=== PATIENT | male | born 1990 | race Two or more races ===

== ENCOUNTER 2024-06-02 14:35 | Emergency (ER) | payer MEDICAID, SELFPAY ==
[2024-06-02 14:38] VITALS: BP 121/79; PULSE 64; RESP 17; TEMP 36.3; O2SAT 98; BMI 27.3
[2024-06-02 14:46] VITALS: PULSE 75; RESP 18; O2SAT 99
--- NOTE | 2024-06-02 14:46 | PC.NURSE ---
PATIENT TO ER VIA EMS FROM [facility] [place], WAS FOUND PASSED OUT ON THE FLOOR, UNWITTNESSED FALL, PATIENT WAS GIVEN NARCAN 4MG IN AND AWOKE SHORTLY AFTER, UPON EMS ARRIVAL GCS 15, DIAPHORETIC, CURRENTLY PATIENT CALM AND COOPERATIVE, STATES HE FEELS TIRED AND WEAK. PATIENT DENIES TAKING ANY DRUG, DENIES PAIN, SKIN IS COOL AND SLIGHTLY MOIST. 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
--- NOTE | 2024-06-02 15:03 | EKG_ITS ---
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
--- NOTE | 2024-06-02 15:05 | PD.EDSYNC ---
ED Syncope RME/HPI General Chief Complaint: Syncope / Near Syncope Stated Complaint: SYNCOPAL EPISODE Time Seen by Provider: 06/02/24 14:53 Arrival date/time: 06/02/24 14:35 This is a 33-year-old male that was brought in by ambulance from [facility] after being found down in cell. Patient was unresponsive and was given Narcan 4 mg intranasally. Per staff patient woke up and was sweaty. patient woke up GCS of 15. Which it was spoke with patient denies any past medical history patient denies any seizure disorder. Patient denies feeling faint prior to being found down. Patient denies drug use initially. After further questioning patient admits to doing a line of drugs but does not know exactly what it was. Related Data Previous Rx's ?Medication ?Instructions ?Recorded Sulfamethoxazole/Trimethoprim DS * 1 tab PO BID #20 tabs 12/21/16 (BACTRIM DS *) ibuprofen 600 mg tablet 600 mg PO Q6HR PRN PAIN #30 tabs 12/21/16 tramadol 50 mg tablet (Ultram) 50 mg PO Q6HR PRN PAIN #12 tabs 12/21/16 Allergies Allergy/AdvReac Type Severity Reaction Status Date / Time NKA* Allergy Uncoded 12/21/16 11:51 Review of Systems Review of Systems Systems Reviewed: All systems reviewed, normal except as documented Past Medical History Past Medical History Comments PMH COMMENT: denies ED Exam General General appearance: Present alert and in no apparent distress Head Head exam: Present atraumatic Eye Eye exam: Present normal appearance, PERRL and EOMI ENT ENT exam: Present normal exam, normal oropharynx and mucous membranes moist Neck Neck exam: Present normal inspection, full ROM and trachea midline Chest Chest inspection: Present normal inspection and symmetric chest wall rise Respiratory Respiratory exam: Present normal lung sounds bilaterally Cardiovascular Cardiovascular exam: Present regular rate, normal rhythm and normal heart sounds Abdominal Exam Abdominal exam: Present soft Extremities Exam Extremities exam: Present normal inspection and full ROM Back Exam Back exam: Present normal inspection and full ROM Neurological Exam Neurological exam: Present alert, oriented X3 and CN II-XII intact Psychiatric Psychiatric exam: Present normal affect and normal mood Skin Skin exam: Present warm, dry, intact and normal color Course Quality Measures none Orders Category Date Time Status 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 START 00 Care 06/02/24 15:06 Completed EKG (ED ONLY) *Do not use* NOW Care 06/02/24 15:[address] head/brain wo con Stat Exams 06/02/24 15:07 Completed EKG (ED Only) Stat Exams 06/02/24 15:03 Draft XR chest 1V Stat Exams 06/02/24 15:07 Completed BNP [B-Type Natriuretic Peptide] Stat Lab 06/02/24 15:44 Completed CBC Stat Lab 06/02/24 15:44 Completed Comprehensive Metabolic Panel Stat Lab 06/02/24 15:44 Completed Drug Screen,Urine Stat Lab 06/02/24 16:20 Completed Troponin I Stat Lab 06/02/24 15:44 Completed Urinalysis, C/S if Indicated Stat Lab 06/02/24 16:20 Completed Ondansetron Inj [Zofran Inj] Med 06/02/24 16:16 Discontinued 4 mg IV X1 ONE Sodium Chloride 0.9% 1000 ml [Ns] 1,000 ml Med 06/02/24 17:08 Discontinued IV 999 mls/hr Vital Signs Vital signs: Vital Signs Temperature 97.4 F 06/02/24 14:38 Pulse Rate 64 06/02/24 14:38 Respiratory Rate 17 06/02/24 14:38 Blood Pressure 121/79 06/02/24 14:38 Pulse Oximetry (%) 98 06/02/24 14:38 Oxygen Delivery Method Nasal Cannula 06/02/24 14:38 Oxygen Flow Rate 6 06/02/24 14:38 Procedures -ED EKG Interpretation #1: Date of EK06/02/24 Time of EK:11 Rate: 60 Interpretation: Interpreted by me (Sinus rhythm) EKG Impression: No ectopy, Normal QRS and Normal intervals Syncope MDM Narrative MDM Narrative:: Labs show white count of 11.7, hemoglobin of 14.6 with a hematocrit of 43.5, BMP unremarkable but AST is 58 and ALT is 56 mildly elevated, UA has RBCs no urinary symptoms per patient drug screen shows positive for fentanyl. Patient awake and allergic and feeling better now that he has been hydrated with IV fluids. I urged patient not to take drugs in [facility]. Pt will be sent back to [facility] Chest x ray shows: Findings: No significant cardiac enlargement Lordotic chest No aspiration pneumonia No pulmonary edema Osseous structures are intact Impression: Negative for aspiration pneumonia ct head: Findings: No significant ventricular enlargement. Intra-axial or extra-axial hemorrhage density is not seen. No mass effect or midline shift Basal cisterns are not remarkable. Fourth ventricle is midline. Cranial vault intact. Impression: Negative for acute hemorrhage, mass effect or midline shift Clinical correlation advised and follow-up accordingly Patient data External records reviewed:: [facility] previous records Clinical information provided by:: patient Social determinants that could affect healthcare access:: other (specify) (in [facility]) Patient has the following chronic illnesses:: none How is presenting disease/condition affected by chronic disease/condition?: no chronic disease Evaluation data The following diagnostics were reviewed and interpreted by me:: lab results, radiology exam(s) and EKG tracing(s) Lab and/or radiology exams considered but not ordered:: see note Interpretation Summary: see note Medications / Prescriptions Medications or Prescriptions considered but not ordered:: none Medication administrations:: Medication Administration History Discontinued Medications Sodium Chloride (Ns) 1,000 mls @ 999 mls/hr IV .Q1H1M ONE Stop: 06/02/24 18:08 Last Infusion: 06/02/24 18:06 Dose: 0 mls/hr Documented By: Admin: 06/02/24 17:15 Dose: 999 mls/hr Documented By: CHELA Ondansetron HCl (Ondansetron Inj 2 Mg/Ml Inj 2 Ml) 4 mg IV X1 ONE; Protocol Stop: 06/02/24 16:17 Last Admin: 06/02/24 16:21 Dose: 4 mg Documented By: CHELA see [facility] Consultations Consultation(s) initiated? (list below): No Diagnosis Syncope Differential Diagnosis: syncope due to orthostatic hypotension, vasovagal syncope, subarachnoid hemorrhage, dehydration and other (drug use ) Most likely diagnosis given after review of the tests above:: drug use of fentanyl Admission Indicated Admission indicated?: not indicated Admission Request Was there a request for admission?: No Disposition Plan Disposition Plan: Discharge Discharge Attestation Discharge Attestation: The patient and all family members were given an opportunity to ask questions and understood the discharge instructions. Discharge instructions specifically effects, indications for sooner follow up or return to the emergency department, and the expected course of current diagnosis. Patient condition: Stable Discharge Plan Plan Patient Disposition: Penitentiary/Court/Law Patient condition on transfer: Stable Prescriptions/Referrals Prescriptions/Med Rec: No Action tramadol [Ultram] 50 MG tablet 50 mg PO Q6HR PRN (Reason: PAIN) Qty: 12 0RF Rx Instructions: FOR PAIN, NOT TO EXCEED 8 TABS IN 24 HRS ibuprofen 600 MG tablet 600 mg PO Q6HR PRN (Reason: PAIN) Qty: 30 0RF Sulfamethoxazole/Trimethoprim DS * (BACTRIM DS *) 1 TAB tablet 1 tab PO BID Qty: 20 0RF Problem List Clinical Impression: Elevated LFTs, Abnormal drug screen, Fentanyl adverse reaction Patient/Caregiver Discharge Instructions Discharge Activity: activity as tolerated Education Materials: ED Drug Reaction, Other Additional Instructions: Please follow-up with [facility] doctor. Come back to the emergency room if symptoms change or worsen. 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
[2024-06-02 15:06] VITALS: PULSE 63
--- NOTE | 2024-06-02 15:07 | XR_ITS ---
Examination: AP chest single view Technique one AP portable semiupright chest single view Exam date and time: May 25, 2024 1542 hrs. Indications: Syncopal episode altered mental status today Findings: No significant cardiac enlargement Lordotic chest No aspiration pneumonia No pulmonary edema Osseous structures are intact Impression: Negative for aspiration pneumonia
--- NOTE | 2024-06-02 15:07 | XR_ITS ---
Examination: CT brain head without contrast. 2-D sagittal coronal reconstructions Date and time of exam:May 25, 2024 1531 hrs. Indications: Syncopal episodes today CTDI: vol (mGy):52.6 DLP: (mGycm):1097 Technique: Multiple CT axial sections of the brain have been obtained, 5 mm slice thickness. Contrast has not been administered. 2-D sagittal, coronal reconstructions have been obtained Low dose protocols were performed. One or more of the following dose reduction techniques were used; automated exposure control, adjustment of the mA and/or KV according to patient size, use of iterative reconstruction technique. Findings: No significant ventricular enlargement. Intra-axial or extra-axial hemorrhage density is not seen. No mass effect or midline shift Basal cisterns are not remarkable. Fourth ventricle is midline. Cranial vault intact. Impression: Negative for acute hemorrhage, mass effect or midline shift Clinical correlation advised and follow-up accordingly
[2024-06-02 16:04] LABS: Basophils % (Auto) 0 % (0-2.5); Eosinophils % (Auto) 0 % (0-10); Hematocrit 43.5 % (41.0-53.0); Hemoglobin 14.6 g/dL (13.5-16.0); Immature Granulocytes % (Auto) 0 % (0-0); Immature Granulocytes Auto 0.05 Thou/mm3 (0.00-0.00); Lymphocytes # (Auto) 1.2 Thou/mm3 (1.0-4.8); Lymphocytes % (Auto) 10 % (10-50); Mean Corpuscular HGB Conc 33.6 g/dl (31.0-37.0); Mean Corpuscular Hemoglobin 29.8 pg (25.0-35.0); Mean Corpuscular Volume 89 fL (80-100); Monocytes # (Auto) 0.8 Thou/mm3 (0.0-0.8); Monocytes % (Auto) 7 % (0-12); Neutrophils # (Auto) 9.6 Thou/mm3 (1.8-7.7); Neutrophils % (Auto) 83 % (37-80); Nucleated Red Blood Cell % 0 /100 WBC (0); Platelet Count 181 Thou/mm3 (140-440); RDW Standard Deviation 41.5 fL (35.1-43.9); White Blood Count 11.7 Thou/mm3 (3.8-10.6)
[2024-06-02 16:21] LABS: B-Type Natriuretic Peptide 32 pg/mL (0-100)
[2024-06-02] MEDS: ONDANSETRON INJ 2 MG/ML INJ 2 ML 4 MG IV (16:21)
[2024-06-02 16:22] LABS: Alanine Aminotransferase 56 U/L (10-49); Albumin, Serum 4.3 gm/dL (3.5-5.0); Albumin/Globulin Ratio 1.4 (1.2-2.2); Alkaline Phosphatase 48 U/L (46-116); Anion Gap 8 (7-16); Aspartate Amino Transferase 58 U/L (0-34); BUN/Creatinine Ratio 15 Ratio (12-20); Bilirubin,Total 0.6 mg/dL (0.3-1.2); Blood Urea Nitrogen 15 mg/dL (9-23); Calcium 9.9 mg/dL (8.3-10.6); Calcium (Corrected) 9.9 mg/dL (8.5-10.1); Carbon Dioxide 29.5 mMol/L (20.0-31.0); Chloride 102 mMol/L (98-107); Estimated Creatinine Clearance 106.1 mL/min (>60); Glucose 116 mg/dL (74-106); Osmolality,Calculated 279 (275-295); Potassium 4.5 mMol/L (3.4-5.1); Sodium 139 mMol/L (136-145); Total Protein 7.3 gm/dL (5.7-8.2); Troponin I < 0.020 ng/mL (0.0-0.045); eGFR > 60 See Note
[2024-06-02 16:24] VITALS: BP 126/74; PULSE 62; RESP 18; TEMP 36.7; O2SAT 97
[2024-06-02 16:42] LABS: Collection Type, Urine Voided; Squamous Epithelial Cell,Urine 0 /hpf (0-5)
[2024-06-02 16:57] LABS: Bilirubin,Urine Negative (Negative); Blood,Urine Negative (Negative); Clarity,Urine Clear (Clear/Hazy); Color,Urine Lt-Yellow (Lt Yel-Yel); Culture Indicated,Urine Not Indicated; Glucose, Urine Negative (Negative); Hyaline Casts,Urine < 1 /hpf (0-1); Ketones,Urine Negative (Negative); Leukocyte Esterase,Urine Negative (Negative); Nitrite,Urine Negative (Negative); PH,Urine 6.5 (5.0-7.0); Protein,Urine 1+ (Neg - Trace); RBC,Urine 5 /hpf (0-3); Specific Gravity,Urine 1.024 (1.001-1.035); Urobilinogen,Urine Negative mg/dL (0.0-1.0); WBC,Urine 2 /hpf (0-5)
[2024-06-02 17:08] LABS: Amphetamine/Methamp Scrn,U Negative (Negative); Barbiturate Screen,Urine Negative (Negative); Benzodiazepines Screen,Urine Negative (Negative); Benzoylecgonine Screen, Ur Negative (Negative); Fentanyl Screen,Urine Positive (Negative); Opiate Screen,Urine Negative (Negative); THC Screen,Urine Negative (Negative)
[2024-06-02] MEDS: SODIUM CHLORIDE 0.9% 1000 ML 1,000 ML 999 ML IV (17:15)
[2024-06-02 17:46] VITALS: BP 105/70; PULSE 65; RESP 16; TEMP 36.8; O2SAT 100
== END 2024-06-02 18:23 ==
LOC: SERX 17:58
PROVIDERS: Nurse Practitioner Family; Emergency Provider Emergency Medicine
DX: R55 Syncope and collapse (principal); R74.8 Abnormal levels of other serum enzymes; R82.5 Elevated urine levels of drugs, medicaments and biological substances; T40.415A Adverse effect of fentanyl or fentanyl analogs, initial encounter
CPT/HCPCS: 36415; 70450; 71045; 80053; 80307; 81001; 83880; 84484; 85025; 93005; 96361; 96374; 99284; J2405; J7030